=== PATIENT | female | born 1930 | race Caucasian/White ===

== ENCOUNTER 2016-09-13 16:04 | Inpatient (IN) | payer MEDICARE, OTHER ==
[2016-09-13] MEDS ORDERED: ONDANSETRON HCL INJ/PF 4 MG/2 ML SDV IV ONE (16:21)
[2016-09-13] MEDS ORDERED: MORPHINE SULFATE 10 MG/ML INJ IV ONE (16:21)
--- NOTE | 2016-09-13 16:33 | RADIOLOGY REPORT (SQ) ---
EXAM DESCRIPTION: HIP LEFT AP/LATERAL COMPLETED DATE/TIME: 09/13/2016 4:26 pm REASON FOR STUDY: OBVIOUS DEFORMITY bed 18 COMPARISON: None. NUMBER OF VIEWS: Two views. TECHNIQUE: AP pelvis and additional frog-leg view of the left hip. LIMITATIONS: Study is limited somewhat due to overlying pelvic bowel gas. FINDINGS: MINERALIZATION: Bony structures are osteopenic LEFT HIP: An intertrochanteric fracture of the proximal left femur is identified. RIGHT HIP: No fracture or dislocation. No worrisome bone lesions. PUBIS AND ISCHIUM: No fracture. PELVIS: No fracture. SACRUM: No fracture or dislocation. No worrisome bone lesions. LOWER LUMBAR SPINE: No fracture or dislocation. No worrisome bone lesions. No significant disc disea se. SOFT TISSUES: No findings. OTHER: No other significant finding. IMPRESSION: Intertrochanteric fracture of the proximal left femur. Other findings as noted above TECHNICAL DOCUMENTATION: JOB ID: [id number] [employer]- All Rights Reserved
--- NOTE | 2016-09-13 16:58 | ER Document Report ---
ED Hip Pain/Injury - General Chief Complaint: Hip Injury Stated Complaint: FALL/HIP INJURY Time Seen by Provider: 09/13/16 16:08 Notes: Patient reportedly tripped over a carpet this afternoon causing her to fall and landed on her left hip where she has severe pain as well as shortening of that leg and unable to stand or bear weight. Brought in to the ED by EMS. Received fentanyl for pain while in route. No other reported injury. Patient was unable to tolerate a cervical collar. No cranial hematomas. No other pain elicited elsewhere. Patient has severe dementia and is not able to participate but minimally in the history and physical evaluation. TRAVEL OUTSIDE OF THE [place] IN LAST 30 DAYS: No - Related Data Allergies/Adverse Reactions: iodine [Iodine] Allergy (Severe, Verified 04/25/11 12:15) Home Medications: Current Home Medications Alprazolam [Xanax 0.5 mg Tablet] 0.25 mg PO Q8HP PRN 09/13/16 [History] Aspirin [Aspirin EC] 81 mg PO DAILY 09/13/16 [History] Cyanocobalamin/FA/Pyridoxine [Virt-Louisa Forte Tablet] 1 tab PO DAILY 09/13/16 [ History] Escitalopram Oxalate [Lexapro 10 mg Tablet] 5 mg PO DAILY 09/13/16 [History] Meloxicam [Mobic 7.5 mg Tablet] 7.5 mg PO DAILYP PRN 09/13/16 [History] Memantine HCl [Namenda Xr] 28 mg PO DAILY 09/13/16 [History] Quetiapine Fumarate [Seroquel 25 mg Tablet] 25 mg PO HSP PRN 09/13/16 [History] Tramadol HCl [Ultram 50 mg Tablet] 50 mg PO Q6HP PRN 09/13/16 [History] Past Medical History - Social History Smoking Status: Unknown if Ever Smoked Cigarette use (# per day): No Family History: Reviewed & Not Pertinent - Past Medical History Cardiac Medical History: Reports: Hx Atrial Fibrillation, Hx Hypertension Neurological Medical History: Reports: Other - Severe dementia Past Surgical History: Reports: Hx Hysterectomy - Immunizations Hx Diphtheria, Pertussis, Tetanus Vaccination: Yes Hx Pneumococcal Vaccination: 07/21/14 Review of Systems - Review of Systems Notes: Limited review of systems available as patient is here with her who also has dementia. REVIEW OF SYSTEMS: CONSTITUTIONAL : Denies fever. EENT: Denies eye, ear, nose or mouth or throat pain or other symptoms. CARDIOVASCULAR: Denies chest pain. RESPIRATORY: Denies cough, chest congestion, or shortness of breath. GASTROINTESTINAL: Denies abdominal pain or nausea, vomiting, or diarrhea. GENITOURINARY: Denies difficulty or painful urinating, urinary frequency, blood in urine. MUSCULOSKELETAL: Denies back or neck pain. Denies joint pain or swelling. SKIN: Denies rash or skin lesions. NEUROLOGICAL: Severe dementia and severe cognitive dysfunction. ALL OTHER SYSTEMS REVIEWED AND NEGATIVE. -: Yes ROS unobtainable due to patient's medical condition Physical Exam - Vital signs Vitals: Resp Pulse Ox 25 H 93 09/13/16 16:33 09/13/16 16:33 Interpretation: Normal - Notes Notes: Patient is quiet and does not answer questions. Also does not follow commands. Patient did receive fentanyl IV in route given by EMS. PHYSICAL EXAMINATION: GENERAL: Thin elderly female in no acute distress, except when her left leg is moved near the hip.. HEAD: Atraumatic, normocephalic. EYES: Pupils equal round and reactive to light, extraocular movements intact. ENT: oropharynx clear without exudates. Moist mucous membranes. NECK: Normal range of motion, supple. LUNGS: Breath sounds clear and equal bilaterally. No rib tenderness to palpation. HEART: Regular rate and rhythm without murmurs. ABDOMEN: Soft, nontender. No guarding or rebound. BACK: No tenderness throughout entire back. EXTREMITIES: Normal range of motion without pain. Left leg is shortened and externally rotated. Very painful to touch or move at the left hip joint. Good pulses in the foot. NEUROLOGICAL: Severe dementia and unable to follow commands or answer questions. Can move all 4 extremities except for the limitations of pain on the left lower extremity. SKIN: Warm, dry, no rashes. Course - Re-evaluation Re-evalutation: 09/13/16 20:[address] Sherwood who agreed to consult on the patient and asked that she be admitted to the hospitalist. I contacted the hospitalist and they saw the patient and admitted her to their service, but the family then asked if the patient can be transferred to [place] because the family lives there and they would be nobody to stay with this patient's here in [place] and there would be considerable difficulty traveling between [place] and here postop. I was able to contact a Dr. Daniel, orthopedist in [place], who agreed to accept the patient in transfer. - Vital Signs Vital signs: Temp Pulse Resp BP Pulse Ox 27 H 144/87 H 90 L 09/13/16 19:01 09/13/16 19:01 09/13/16 19:01 - Laboratory Result Diagrams: 09/13/16 16:28 09/13/16 16:28 Laboratory results interpreted by me: 09/13/16 09/13/16 16:28 16:28 RDW 15.1 H Potassium 5.3 H Est GFR ( Amer) 55 L Est GFR (Non-Af Amer) 45 L Glucose 144 H AST 40 H - Diagnostic Test Radiology results interpreted by me: 09/13/16 20:29 X-ray reveals an intertrochanteric fracture of the left hip. - EKG Interpretation by Me EKG shows normal: Sinus rhythm Rate: Normal Rhythm: NSR Voltage: Increased voltage, Consistant with LVH Discharge - Discharge Clinical Impression: Intertrochanteric fracture of left hip Condition: Stable Disposition: [facility] Admitting Provider: Ortho in [place]
[2016-09-13] MEDS ORDERED: DEXTROSE 50%-WATER 25 GM/50 ML DISP.SYRIN IV PRN ×2 (17:17)
[2016-09-13] MEDS ORDERED: GLUCAGON,HUMAN RECOMB 1 MG INJ SUBCUT PRN (17:17)
[2016-09-13] MEDS ORDERED: DEXTROSE 40% GEL 15 GM TUBE PO PRN ×2 (17:17)
[2016-09-13] MEDS ORDERED: ONDANSETRON HCL INJ/PF 4 MG/2 ML SDV IV PRN (17:20)
[2016-09-13] MEDS ORDERED: ALBUTEROL SULFATE 0.083% NEB 2.5 MG/3 ML AMPUL NEB PRN (17:20)
[2016-09-13] MEDS ORDERED: NORMAL SALINE 1000 ML 1,000 ML IV PRN (17:20)
[2016-09-13] MEDS ORDERED: ACETAMINOPHEN 325 MG TABLET PO PRN (17:20)
[2016-09-13] MEDS ORDERED: ONDANSETRON 4 MG TAB.RAPDIS PO PRN (17:20)
[2016-09-13] MEDS ORDERED: OXYCODONE-ACETAMINOPHEN 5-325 MG TABLET PO PRN (17:20)
[2016-09-13 17:23] LABS: ABSOLUTE LYMPHOCYTES (AUTO) 2.1 10^3/uL (0.5-4.7); ABSOLUTE MONOCYTES (AUTO) 0.3 10^3/uL (0.1-1.4); ABSOLUTE NEUT (AUTO) 6.9 10^3/uL (1.7-8.2); BASOPHILS % (AUTO) 0.3 % (0-2); HEMATOCRIT 42.7 % (36.0-47.0); HGB HCT DIFFERENCE -0.7; LYMPHOCYTES % (AUTO) 22.7 % (13-45); MEAN CORPUSCULAR HEMOGLOBIN 30.5 pg (27.0-33.4); MEAN CORPUSCULAR HGB CONC 32.9 g/dL (32.0-36.0); MEAN CORPUSCULAR VOLUME 93 fl (80-97); MONOCYTES % (AUTO) 3.6 % (3-13); RED CELL DISTRIBUTION WIDTH 15.1 % (11.5-14.0); SEGMENTED NEUTROPHILS % (AUTO) 73.4 % (42-78); WHITE BLOOD COUNT 9.4 10^3/uL (4.0-10.5)
[2016-09-13] MEDS ORDERED: ALPRAZOLAM 0.25 MG PO PRN (17:26)
[2016-09-13] MEDS ORDERED: QUETIAPINE FUMARATE 25 MG TABLET PO PRN (17:27)
[2016-09-13 17:30] LABS: ALANINE AMINOTRANSFERASE 39 U/L (9-52); ALKALINE PHOSPHATASE 76 U/L (38-126); ANION GAP 13 (5-19); ASPARTATE AMINO TRANSFERASE 40 U/L (14-36); BILIRUBIN,DIRECT 0.4 mg/dL (0.0-0.4); BILIRUBIN,TOTAL 0.8 mg/dL (0.2-1.3); BLOOD UREA NITROGEN 16 mg/dL (7-20); CALCIUM 9.4 mg/dL (8.4-10.2); CARBON DIOXIDE 25 mmol/L (22-30); CHLORIDE 102 mmol/L (98-107); CREATININE RESULT 1.14 mg/dL (0.52-1.25); GLUCOSE 144 mg/dL (75-110); POTASSIUM 5.3 mmol/L (3.6-5.0); SODIUM 139.7 mmol/L (137-145); TOTAL PROTEIN 6.8 g/dL (6.3-8.2)
--- NOTE | 2016-09-13 17:39 | PDOC H&P ---
History of Present Illness Admission Date/PCP: 09/13/16 17:10 Patient complains of: Left hip pain History of Present Illness: MANUELA SARKAR is a 86 year old female with a history of dementia who fell in her dining room today onto her left hip. Patient complains of pain and is noted to have a left intertrochanteric fracture. Patient is demented and unable to give any history and is all obtained from the son who is at the bedside. She has a at the bedside also but he is very deaf and is unable to give any history because of inability to hear. Patient did not have any loss of consciousness. And she has no real medical history is other than her dementia. Past Medical History Cardiac Medical History: Reports: Atrial Fibrillation, Hypertension Denies: Myocardial Infarction Pulmonary Medical History: Denies: Asthma Neurological Medical History: Denies: Seizures Endocrine Medical History: Reports: None Renal/ Medical History: Reports: None GI Medical History: Denies: Hepatitis, Hiatal Hernia Skin Medical History: Reports: None Psychiatric Medical History: Reports: None Hematology: Denies: Anemia, Sickle Cell Disease Infectious Medical History: Reports: None Past Surgical History Past Surgical History: Reports: Hysterectomy Denies: Amputation, Mastectomy, Pacemaker Social History Information Source: Relative Lives with: Family Smoking Status: Never Smoker Frequency of Alcohol Use: None Hx Recreational Drug Use: No Drugs: None Hx Prescription Drug Abuse: No - Advance Directive Resuscitation Status: Full Code Family History Family History: Mother in her 80s and had diabetes and unspecified cancer. Her father from "blood poisoning" Parental Family History Reviewed: Yes Children Family History Reviewed: No Sibling(s) Family History Reviewed.: No Medication/Allergy Home Medications: Alprazolam [Niravam] 0.25 mg PO PRN PRN 04/02/11 Aspirin [Aspirin 81 mg Chewable Tablet] 81 mg PO DAILY 04/02/11 Calcium Carb/Vit D3/Minerals [Caltrate-600 With Vit D Tab] 1 each PO DAILY 04/02 Multivitamin [Vitamin A Day] 1 each PO DAILY 04/02/11 Move Free 1 PO DAILY 04/25/11 Allergies/Adverse Reactions: iodine [Iodine] Allergy (Severe, Verified 04/25/11 12:15) Review of Systems ROS unobtainable: Due to mental status Physical Exam Vital Signs: Temp Pulse Resp BP Pulse Ox 16 09/13/16 16:49 General appearance: PRESENT: no acute distress, thin Head exam: PRESENT: atraumatic, normocephalic Eye exam: PRESENT: conjunctiva pink, EOMI, PERRLA. ABSENT: scleral icterus Mouth exam: PRESENT: moist, tongue midline Neck exam: ABSENT: carotid bruit, JVD, lymphadenopathy, thyromegaly Respiratory exam: PRESENT: clear to auscultation trip. ABSENT: rales, rhonchi, wheezes Cardiovascular exam: PRESENT: RRR. ABSENT: diastolic murmur, rubs, systolic murmur Pulses: PRESENT: normal dorsalis pedis pul Vascular exam: PRESENT: normal capillary refill GI/Abdominal exam: PRESENT: normal bowel sounds, soft. ABSENT: distended, guarding, mass, organolmegaly, rebound, tenderness Rectal exam: PRESENT: deferred Extremities exam: PRESENT: other - Left leg is internally rotated and shortened. ABSENT: calf tenderness, clubbing, pedal edema Neurological exam: PRESENT: awake, oriented to person, CN II-XII grossly intact. ABSENT: oriented to place, oriented to time, oriented to situation, motor sensory deficit Psychiatric exam: PRESENT: flat affect Skin exam: PRESENT: dry, intact, warm. ABSENT: cyanosis, rash Results Impressions: Hip X-Ray 09/13/16 00:00 IMPRESSION: Intertrochanteric fracture of the proximal left femur. Other findings as noted above Assessment & Plan - Diagnosis (1) Intertrochanteric fracture of left hip Is this a current diagnosis for this admission?: YesPlan: Patient has left hip. Patient needs surgical repair. Patient initially was going to stay here however after I left the emergency room I was informed that the patient's family requested that she be transferred to [facility]. If the patient decides to stay we will admit and consult orthopedic surgery. Patient is at a moderately increased risk for surgery because of her age. Will hold her aspirin until after the surgery. (2) Dementia Is this a current diagnosis for this admission?: YesPlan: Patient is severely demented. She is on Seroquel 25 mg nightly, Lexapro 5 mg daily, Namenda XR 20 mg daily. Will continue with those however we only have short acting Namenda. - Time Time Spent: 50 to 70 Minutes - Inpatient Certification Medical Necessity: Need for Surgery - Plan Summary Plan Summary: The patient's family has requested that she be transferred to [facility]. Emergency room will arrange this. If her family changes their mind we will proceed with the plan as outlined above.
[2016-09-13] MEDS ORDERED: ALPRAZOLAM 0.25 MG TABLET PO PRN (19:06)
[2016-09-13] MEDS: MORPHINE SULFATE 10 MG/ML INJ IV PRN (21:18)
[2016-09-13] MEDS ORDERED: FAMOTIDINE 20 MG TABLET PO SCH (22:00)
[2016-09-13] MEDS ORDERED: MEMANTINE HCL 10 MG TABLET PO SCH (22:00)
[2016-09-14] MEDS: MORPHINE SULFATE 10 MG/ML INJ IV PRN ×2 (03:41→08:55)
--- NOTE | 2016-09-14 06:03 | EKG REPORT ---
SEVERITY:- ABNORMAL ECG - SINUS RHYTHM LEFT VENTRICULAR HYPERTROPHY LATERAL INFARCT, OLD ABNORMAL T, CONSIDER ISCHEMIA, INFERIOR LEADS : Confirmed by: Maci Rubio MD 14-Sep-2016 06:02:23
--- NOTE | 2016-09-14 08:57 | ER Document Report ---
Doctor's Note Notes: 09/14/16 08:56 Patient being transferred at this time, stable unspecific distress
[2016-09-14 09:19] VITALS: BP 136/81
[2016-09-14] MEDS ORDERED: CALCIUM CARBONATE 250 MG/VITAMIN D3 125 UNIT TABLET PO SCH (10:00)
[2016-09-14] MEDS ORDERED: ESCITALOPRAM OXALATE 10 MG TABLET PO SCH (10:00)
[2016-09-14] MEDS ORDERED: MULTIVITAMIN TABLET PO SCH (10:00)
[2016-09-14] MEDS ORDERED: MINERALS PO SCH (10:00)
[2016-09-14] MEDS ORDERED: CALCIUM CARB PO SCH (10:00)
[2016-09-14] MEDS ORDERED: VIT D3 PO SCH (10:00)
[2016-09-14] MEDS ORDERED: [UNRECOGNIZED DRUG - OTHER] PO SCH (10:00)
--- NOTE | 2016-09-25 12:17 | PDOC TRANSFER SUMMARY ---
General Admission Date/PCP: 09/13/16 17:20 Admission Date: 09/13/16 Transfer Date: 09/14/16 Accepting Facility: [facility] Resuscitation Status: Full Code - Transfer Diagnosis (1) Intertrochanteric fracture of left hip Is this a current diagnosis for this admission?: Yes (2) Dementia Is this a current diagnosis for this admission?: Yes - Transfer Medications Home Medications: Alprazolam [Xanax 0.5 mg Tablet] 0.25 mg PO Q8HP PRN 09/13/16 Aspirin [Aspirin EC] 81 mg PO DAILY 09/13/16 Cyanocobalamin/FA/Pyridoxine [Virt-Louisa Forte Tablet] 1 tab PO DAILY 09/13/16 Escitalopram Oxalate [Lexapro 10 mg Tablet] 5 mg PO DAILY 09/13/16 Meloxicam [Mobic 7.5 mg Tablet] 7.5 mg PO DAILYP PRN 09/13/16 Memantine HCl [Namenda Xr] 28 mg PO DAILY 09/13/16 Quetiapine Fumarate [Seroquel 25 mg Tablet] 25 mg PO HSP PRN 09/13/16 Tramadol HCl [Ultram 50 mg Tablet] 50 mg PO Q6HP PRN 09/13/16 - Allergies Allergies/Adverse Reactions: iodine [Iodine] Allergy (Severe, Verified 04/25/11 12:15) - Diet/Activity Discharge Diet: Regular Discharge Activity: Bedrest Hospital Course Hospital Course: With severe dementia admitted with a hip fracture. I wrote admission orders and after I left the emergency room the patient's family requested that the patient be transferred to [facility]. The emergency room physician graciously contacted that facility and arranged for the patient to be transferred. Patient did not leave until September 14 early in the morning. Physical Exam Vital Signs: Temp Pulse Resp BP Pulse Ox 97.4 F 92 22 H 136/81 H 97 09/14/16 09:01 09/14/16 07:55 09/14/16 09:01 09/14/16 09:00 09/14/16 09:01 General appearance: PRESENT: no acute distress Neck exam: ABSENT: JVD Respiratory exam: PRESENT: clear to auscultation trip. ABSENT: rales, rhonchi, wheezes Cardiovascular exam: PRESENT: RRR. ABSENT: diastolic murmur, rubs, systolic murmur GI/Abdominal exam: PRESENT: normal bowel sounds, soft. ABSENT: distended, guarding, mass, organolmegaly, rebound, tenderness Extremities exam: ABSENT: calf tenderness, clubbing, pedal edema Neurological exam: PRESENT: oriented to person. ABSENT: oriented to place, oriented to time, oriented to situation Psychiatric exam: PRESENT: flat affect Results Impressions: Hip X-Ray 09/13/16 00:00 IMPRESSION: Intertrochanteric fracture of the proximal left femur. Other findings as noted above Plan Discharge Plan: Was transferred to [facility] at the family's request. Time Spent: Less than 30 Minutes
== END 2016-09-14 09:16 | disposition short-term general hospital (02) | DRG 536 ==
LOC: ER 16:04 → EH 17:10 → UNDOADMIN 17:10 → EH 17:20
PROVIDERS: ADMIT Family Medicine; ATTEND Family Medicine
PROC: 3E0F73Z Introduction of Anti-inflammatory into Respiratory Tract, Via Natural or Artificial Opening (ICD-10-PCS; principal; 2016-09-13)
DX: S72.142A Displaced intertrochanteric fracture of left femur, initial encounter for closed fracture (principal); W01.0XXA Fall on same level from slipping, tripping and stumbling without subsequent striking against object, initial encounter; Y92.011 Dining room of single-family (private) house as the place of occurrence of the external cause; F03.90 Unspecified dementia, unspecified severity, without behavioral disturbance, psychotic disturbance, mood disturbance, and anxiety; I48.91 Unspecified atrial fibrillation; I10 Essential (primary) hypertension; Z90.710 Acquired absence of both cervix and uterus; Z79.82 Long term (current) use of aspirin; Z79.899 Other long term (current) drug therapy; Z88.8 Allergy status to other drugs, medicaments and biological substances; Z83.3 Family history of diabetes mellitus; Z80.9 Family history of malignant neoplasm, unspecified
CPT/HCPCS: 36415; 80053; 85025; 93005; 93010; 96374; 96375; 99285; J2270; J2405; J7030

== ENCOUNTER 2017-12-08 14:53 | Emergency (ER) | payer MEDICARE, OTHER ==
--- NOTE | 2017-12-08 15:18 | ER Document Report ---
ED General <HILDA AGUILAR - Last Filed: 12/08/17 20:08> - General Mode of Arrival: Ambulatory Information source: Patient TRAVEL OUTSIDE OF THE [place] IN LAST 30 DAYS: No <PACO TRAN - Last Filed: 12/08/17 20:11> - General Stated Complaint: ABDOMINAL PAIN Time Seen by Provider: 12/08/17 15:08 Notes: Patient is a 87-year-old who is demented and hard of hearing presents the emergency department accompanied by family members complaining of lower abdominal pain onset 3-4 days ago. Family at bedside states that the patient has also vomited 1x today after being given Pepto-Bismol around 1400. They state prior to the vomiting episode, the patient dry heaved 2x. Patient's family member mentions the patient having looser than normal stool the last few days. Family denies any fevers. Patient's PCP is Dr. Melendez in [place]. (PACO TRAN) - Related Data Allergies/Adverse Reactions: iodine [Iodine] Allergy (Severe, Verified 04/25/11 12:15) Past Medical History Psychiatric Medical History: Reports: Hx Anxiety <JEFFHILDA - Last Filed: 12/08/17 20:08> - General Information source: Relative - Social History Smoking Status: Never Smoker Cigarette use (# per day): No Chew tobacco use (# tins/day): No Frequency of alcohol use: None Family History: Reviewed & Not Pertinent - Past Medical History Cardiac Medical History: Reports: Hx Atrial Fibrillation, Hx Hypertension Past Surgical History: Reports: Hx Hysterectomy, Hx Orthopedic Surgery - Right knee, left hip - Immunizations Hx Diphtheria, Pertussis, Tetanus Vaccination: Yes Hx Pneumococcal Vaccination: 07/21/14 <PACO TRAN - Last Filed: 12/08/17 20:11> Review of Systems - Review of Systems Constitutional: No symptoms reported EENT: No symptoms reported Cardiovascular: No symptoms reported Respiratory: No symptoms reported Gastrointestinal: See HPI, Abdominal pain, Vomiting Genitourinary: No symptoms reported Female Genitourinary: No symptoms reported Musculoskeletal: No symptoms reported Skin: No symptoms reported Hematologic/Lymphatic: No symptoms reported Neurological/Psychological: No symptoms reported <PACO TRAN - Last Filed: 12/08/17 20:11> Physical Exam - General General appearance: Alert, Other - Cachetic, family states this is baseline. In distress: None - HEENT Head: Normocephalic, Atraumatic Eyes: Normal Conjunctiva: Normal Extraocular movements intact: Yes Pupils: PERRL Mucous membranes: Normal Neck: Normal. No: Carotid bruit - Respiratory Respiratory status: No respiratory distress Chest status: Nontender Breath sounds: Normal Chest palpation: Normal - Cardiovascular Rhythm: Regular Heart sounds: Normal auscultation Murmur: No Friction rub: No Gallop: None auscultated Pulses: Normal: Brachial - Abdominal Inspection: Normal Distension: No distension Bowel sounds: Normal Tenderness: Nontender Organomegaly: No organomegaly - Back Back: Normal - Extremities General upper extremity: Normal ROM General lower extremity: Normal ROM - Neurological Neuro grossly intact: Yes Cognition: Normal Orientation: AAOx4 - Demented at baseline - Psychological Associated symptoms: Normal affect, Normal mood - Skin Skin Temperature: Warm Skin Moisture: Dry Skin Color: Normal <PACO TRAN - Last Filed: 12/08/17 20:11> - Vital signs Vitals: Resp Pulse Ox 14 97 12/08/17 15:16 12/08/17 15:16 Course - Laboratory Result Diagrams: 12/08/17 16:15 12/08/17 16:15 - Diagnostic Test Radiology reviewed: Image reviewed, Reports reviewed - Acute abdominal series does not show obstruction, does show considerable constipation primarily in the pelvic area. - EKG Interpretation by Me EKG shows normal: Sinus rhythm, [place], Intervals, QRS Complexes, ST-T Waves Rate: Normal - 57 Rhythm: NSR Voltage: Consistant with LVH When compared to previous EKG there are: No significant change <HILDA AGUILAR - Last Filed: 12/08/17 20:08> - Laboratory Result Diagrams: 12/08/17 16:15 12/08/17 16:15 <PACO TRAN - Last Filed: 12/08/17 20:11> - Re-evaluation Re-evalutation: 12/08/17 17:53 Family was concerned about the patient not receiving her Xanax and many hours, they were given permission to give her her 0.25 mg dose of Xanax. About an hour later, she is still little anxious uncooperative and they are requesting we give her some IV medication. I will give her a small dose of Valium and see if that helps without over sedating her. 12/08/17 20:08 The patient passed a large amount of stool after the enema. Her abdomen is soft with good bowel sounds and is not tender to palpate at this time. Her son reports that she takes a dose of MiraLAX every morning with her coffee, but does admit that she does not drink much fluids throughout the day. He is encouraged to try to get her to drink at least half a glass to a glass of water every few hours throughout the day. (HILDA AGUILAR) - Vital Signs Vital signs: Temp Pulse Resp BP Pulse Ox 16 131/72 H 98 12/08/17 18:00 12/08/17 18:00 12/08/17 18:00 - Laboratory Laboratory results interpreted by me: 12/08/17 12/08/17 16:15 16:15 RDW 15.0 H Seg Neutrophils % 86.8 H Lymphocytes % 7.0 L Absolute Neutrophils 8.7 H Potassium 5.2 H Glucose 123 H Direct Bilirubin 0.5 H AST 42 H Discharge <HILDA AGUILAR - Last Filed: 12/08/17 20:08> <PACO TRAN - Last Filed: 12/08/17 20:11> - Discharge Clinical Impression: Constipation Qualifiers: Constipation type: unspecified constipation type Qualified Code(s): K59.00 - Constipation, unspecified Abdominal pain Qualifiers: Abdominal location: unspecified location Qualified Code(s): R10.9 - Unspecified abdominal pain Condition: Stable Disposition: HOME, SELF-CARE Additional Instructions: Abdominal Pain: There are many causes of abdominal pain. Pain can mean a serious problem requiring surgery (such as appendicitis). It can also be an innocent problem that goes away on its own (such as a viral infection). Often, time must pass to determine the cause of pain. The physician does not feel that hospitalization is necessary, at present. Things may change within the next 24 hours. Call the doctor or come back for re- examination if any problems occur, such as: (1) Pain that becomes more severe, steady, or becomes concentrated in one specific area. Also, pain that is more severe with movement or coughing. (2) Vomiting that persists or becomes more frequent. (3) Blood in the vomitus, urine, or bowel movements. Blood in the stool may have a tarry or black appearance. (4) Shaking chills or fever greater than 100 degrees F. (5) The abdomen becomes more distended or swollen. (6) Bowel movements cease. (7) Failure to improve as expected. Constipation: Constipation is a common problem. It is especially likely as you get older. Constipation is a common cause of abdominal pain, but sometimes causes no symptoms at all. Causes of constipation include certain medications, dehydration, diets, inactivity, and low-fiber intake. Rarely, it can be a symptom of underlying disease. The physician has evaluated you for this. Avoid constipation by eating a diet high in fiber, fruits, and vegetables. Drink plenty of liquids. Get regular exercise. If possible, avoid constipating medicines like narcotic pain medication. Some vitamin tablets can cause constipation. Stool softeners may be needed for difficult cases. An excellent stool softener is Konsyl which is available at [employer], and [employer]. Just add a teaspoon to a glass of pineapple or orange juice daily or twice a day if needed. Laxatives are useful for occasional constipation. You should use them only when necessary. Too-frequent use can make your bowels dependent on them. Some over the counter laxatives available without prescription are: Milk of Magnesia, 1-2 tablespoons twice a day Dulcolax, 5 mg pill or 10 mg suppository. Citrate of Magnesia, 4-5 ounces a day for a day or two For acute constipation, Fleet's Enemas and Dulcolax suppositories are helpful. Chronic, greens laborer use of laxatives or enemas is not a good idea. Your bowel may become dependant on them. You do not need to have a bowel movement every day. Many people do fine with a bowel movement every three or four days. You should call your doctor or return for re-evaluation if you pass blood in the stool, or if you develop fever or increasing abdominal pain. Continue taking your MiraLAX every day. Increase the amount of fluid that you are drinking throughout the day in the evening. Follow-up with your doctor this week if not improving. RETURN TO THE EMERGENCY ROOM IF ANY NEW OR WORSENING SYMPTOMS. Referrals: MARIA TERESA MARTINS MD [Primary Care Provider] - Follow up as needed Scribe Attestation: 12/08/17 15:45 I personally performed the services described in the documentation, reviewed and edited the documentation which was dictated to the scribe in my presence, and it accurately records my words and actions. (HILDA AGUILAR) Scribe Documentation - Scribe Written by Clarkee:: Sukhwinder Murphy, 12/08/2017 15:29 acting as scribe for :: Jeff <PACO TRAN - Last Filed: 12/08/17 20:11>
[2017-12-08 16:31] LABS: ABSOLUTE LYMPHOCYTES (AUTO) 0.7 10^3/uL (0.5-4.7); ABSOLUTE MONOCYTES (AUTO) 0.6 10^3/uL (0.1-1.4); ABSOLUTE NEUT (AUTO) 8.7 10^3/uL (1.7-8.2); BASOPHILS % (AUTO) 0.4 % (0-2); HEMATOCRIT 44.8 % (36.0-47.0); HEMOGLOBIN 15.1 g/dL (12.0-15.5); MEAN CORPUSCULAR HEMOGLOBIN 31.4 pg (27.0-33.4); MEAN CORPUSCULAR HGB CONC 33.8 g/dL (32.0-36.0); MEAN CORPUSCULAR VOLUME 93 fl (80-97); MONOCYTES % (AUTO) 5.8 % (3-13); PLATELET COUNT 288 10^3/uL (150-450); RED BLOOD COUNT 4.82 10^6/uL (3.72-5.28); SEGMENTED NEUTROPHILS % (AUTO) 86.8 % (42-78); TOTAL CELLS COUNTED % (AUTO) 100 %; WHITE BLOOD COUNT 10.1 10^3/uL (4.0-10.5)
--- NOTE | 2017-12-08 16:48 | RADIOLOGY REPORT (SQ) ---
EXAM DESCRIPTION: ACUTE ABDOMEN SERIES COMPLETED DATE/TIME: 12/08/2017 4:10 pm REASON FOR STUDY: N V, lower abd pain COMPARISON: None. NUMBER OF VIEWS: Three views. TECHNIQUE: Frontal chest, supine abdomen and upright/decubitus abdomen radiographic images acquired. LIMITATIONS: None. FINDINGS: CHEST: Lungs clear of infiltrates. FREE AIR: None. No abnormal gas collections. BOWEL GAS PATTERN: Nonspecific pattern. Scattered small bowel gas. No definite dilated loops or air fluid levels. CONSTIPATION: moderate. CALCIFICATIONS: No suspicious calcifications. HARDWARE: None in the abdomen. SOFT TISSUES: No gross mass or suggestion of organomegaly. BONES: No acute fracture. No worrisome bone lesions. OTHER: No other significant finding. IMPRESSION: Nonspecific pattern. Scattered small bowel gas. No definite dilated loops or air fluid levels.. CONSTIPATION. TECHNICAL DOCUMENTATION: JOB ID: [id number] [id number] 2010 [employer]- All Rights Reserved Reading location - IP/workstation name: [email or web address]
[2017-12-08 16:49] LABS: ALANINE AMINOTRANSFERASE 26 U/L (9-52); ALBUMIN 4.3 g/dL (3.5-5.0); ALKALINE PHOSPHATASE 70 U/L (38-126); ANION GAP 11 (5-19); ASPARTATE AMINO TRANSFERASE 42 U/L (14-36); BILIRUBIN,DIRECT 0.5 mg/dL (0.0-0.4); BILIRUBIN,TOTAL 1.1 mg/dL (0.2-1.3); BLOOD UREA NITROGEN 17 mg/dL (7-20); CALCIUM 9.7 mg/dL (8.4-10.2); CARBON DIOXIDE 29 mmol/L (22-30); CHLORIDE 100 mmol/L (98-107); CREATINE KINASE 58 U/L (30-135); GLUCOSE 123 mg/dL (75-110); POTASSIUM 5.2 mmol/L (3.6-5.0); SODIUM 139.6 mmol/L (137-145); TOTAL PROTEIN 7.3 g/dL (6.3-8.2)
[2017-12-08] MEDS ORDERED: MINERAL OIL 30 ML UDCUP PR ONE (17:07)
[2017-12-08] MEDS ORDERED: DIAZEPAM INJ 10 MG/2 ML DISP.SYRIN IV ONE (17:52)
[2017-12-08 18:48] VITALS: BP 131/72
[2017-12-08] MEDS ORDERED: MINERAL OIL 30 ML UDCUP ONE (19:28)
--- NOTE | 2017-12-08 19:49 | EKG REPORT ---
SEVERITY:- DEFECTIVE ECG - PROBABLE SINUS RHYTHM WITH BASELINE ARTIFACT : Confirmed by: Maci Rubio MD 08-Dec-2017 19:48:37
== END 2017-12-08 20:21 | disposition home or self-care (01) ==
LOC: ER 14:53
DX: K59.00 Constipation, unspecified (principal); R10.30 Lower abdominal pain, unspecified; R11.10 Vomiting, unspecified; I10 Essential (primary) hypertension
CPT/HCPCS: 93005; 99284; 96374; 36415; 82550; 85025; 80053; 84484; 74022; 93010; J3360; J3490

== ENCOUNTER 2018-02-14 05:53 | Emergency (ER) | payer MEDICARE ==
[2018-02-14 06:02] VITALS: BP 179/85
--- NOTE | 2018-02-14 06:10 | ER Document Report ---
ED General - General Chief Complaint: Unresponsive Stated Complaint: UNRESPONSIVE Time Seen by Provider: 02/14/18 06:08 Mode of Arrival: Medic - 87-year-old female who presents for evaluation of Information source: Relative, Emergency Med Personnel TRAVEL OUTSIDE OF THE [place] IN LAST 30 DAYS: No - HPI Patient complains to provider of: unresponsive Onset: Other - 87-year-old female presents for unresponsiveness this morning found by her in-home caregiver. She has a history of profound dementia in the past as well as several other health problems. She is a DNR. Prior to arrival EMS had given her bag assisted breaths as she had no appreciable respiratory effort and her pupils were dilated and fixed. Rest of history is limited secondary to patient's unresponsive status - Related Data Allergies/Adverse Reactions: iodine [Iodine] Allergy (Severe, Verified 04/25/11 12:15) Past Medical History - General Information source: Patient, Relative Cannot obtain history due to: Unstable vital signs, Altered mental status - Social History Smoking Status: Unknown if Ever Smoked Family History: Reviewed & Not Pertinent - Past Medical History Cardiac Medical History: Reports: Hx Atrial Fibrillation, Hx Hypertension Denies: Hx Heart Attack Pulmonary Medical History: Denies: Hx Asthma Neurological Medical History: Denies: Hx Cerebrovascular Accident, Hx Seizures Renal/ Medical History: Denies: Hx Peritoneal Dialysis GI Medical History: Denies: Hx Hepatitis, Hx Hiatal Hernia, Hx Ulcer Psychiatric Medical History: Reports: Hx Anxiety Infectious Medical History: Denies: Hx Hepatitis Past Surgical History: Reports: Hx Hysterectomy, Hx Orthopedic Surgery - Right knee, left hip. Denies: Hx Mastectomy, Hx Open Heart Surgery, Hx Pacemaker - Immunizations Hx Diphtheria, Pertussis, Tetanus Vaccination: Yes Hx Pneumococcal Vaccination: 07/21/14 Review of Systems - Review of Systems -: Yes All other systems reviewed and negative Physical Exam - Vital signs Vitals: Pulse Resp BP Pulse Ox 111 H 20 186/105 H 86 L 02/14/18 05:53 02/14/18 05:53 02/14/18 05:53 02/14/18 05:53 - General General appearance: Unresponsive In distress: Mild - HEENT Head: Normocephalic Eyes: Normal Conjunctiva: Normal Cornea: Normal Extraocular movements intact: No Eyelashes: Matted Pupils: Dilated, Fixed - Respiratory Respiratory status: Other - Apneic Chest status: Nontender Breath sounds: Other - No appreciable air movement Chest palpation: Normal - Cardiovascular Rhythm: Regular Heart sounds: Normal auscultation Murmur: No - Abdominal Inspection: Normal Tenderness: Nontender - Back Back: Normal - Extremities General upper extremity: Normal inspection General lower extremity: Normal inspection - Neurological Neuro grossly intact: No Cognition: Other - unresponsive [place] Coma Scale Eye Opening: None [place] Coma Scale Verbal: None [place] Coma Scale Motor: None [place] Coma Scale Total: 3 Course - Re-evaluation Re-evalutation: 02/14/18 06:18 On arrival this 87-year-old female is unresponsive, intermittently she has a faint respiratory effort though generally she is apneic, entirely unresponsive with dilated pupils which are fixed. She does not respond to noxious stimuli. I have spoke to her in-home caregiver who states that she would not want to be put onto a ventilator or life support. We will defer aggressive evaluation at this time for this patient, her oxygen saturation on nonrebreather is intermittently in the 80s however frequently desaturates to the 50s. Because of this patient's devastated status believe it would be inappropriate to initiate an aggressive workup. Given the clinical picture is likely that this patient suffered a devastating CVA or serious cardiac arrhythmia with resultant anoxia and a brain injury. Her son is currently in route from [place], I will defer further workup until he is here to make decisions. 02/14/18 06:23 6:22 AM patient rhythm slowed. She subsequently became asystolic. I evaluated the patient at the bedside, she had no respiratory effort, no appreciable pulse, at 6:22 AM time of was pronounced. Prior to her son's arrival patient subsequently became totally apneic, asystolic, time of was pronounced. Areas at the bedside were updated. As the patient is a DNR/DNI deferred chest compressions or shocks. Patient passed peacefully. There were no obvious external signs of trauma on this patient. - Vital Signs Vital signs: Temp Pulse Resp BP Pulse Ox 111 H 6 L 179/85 H 59 L 02/14/18 05:53 02/14/18 06:01 02/14/18 06:00 02/14/18 06:01 Discharge - Discharge Clinical Impression: Unresponsive, Apnea for greater than 15 seconds, Hypoxia, Condition: Stable Disposition: Referrals: MARIA TERESA MARTINS MD [Primary Care Provider] - Follow up as needed
--- NOTE | 2018-02-14 07:54 | EKG REPORT ---
SEVERITY:- ABNORMAL ECG - SINUS TACHYCARDIA PAIRED VENTRICULAR PREMATURE COMPLEXES PROBABLE LEFT ATRIAL ABNORMALITY LVH WITH SECONDARY REPOLARIZATION ABNORMALITY : Confirmed by: Maury Tejada MD 14-Feb-2018 07:53:21
== END 2018-02-14 08:14 | disposition expired ==
LOC: ER 05:53
DX: R09.02 Hypoxemia; R06.81 Apnea, not elsewhere classified; I10 Essential (primary) hypertension
CPT/HCPCS: 93005; 93010; 99285